=== PATIENT | female | born 1990 | race African-American/Black ===

== ENCOUNTER 2018-04-25 10:28 | Emergency (ER) | payer MEDICAID ==
[2018-04-25 11:03] LABS: WHITE BLOOD COUNT 8.2 10^3/ul (4.8-10.8)
[2018-04-25 11:03] LABS: ADD MAN DIFF? NO; BASOPHILS % 0.5 % (0.0-2.0); EOSINOPHILS # 0.2 10^3/ul (0.0-0.5); EOSINOPHILS % 1.8 % (0.0-7.0); HEMATOCRIT 42.7 % (37.0-47.0); HEMOGLOBIN 13.4 g/dl (12.0-16.0); LYMPHOCYTES % 24.9 % (15.0-51.0); MEAN CORPUSCULAR HEMOGLOBIN 23.3 pg (29.0-33.0); MEAN CORPUSCULAR HGB CONC 31.4 g/dl (32.0-37.0); MEAN CORPUSCULAR VOLUME 74.3 fl (82.0-101.0); MEAN PLATELET VOLUME 12.2 fl (7.4-10.4); MONOCYTE # 0.9 10^3/ul (0.3-0.9); MONOCYTES % 10.5 % (0.0-11.0); NEUTROPHIL # 5.1 10^3/ul (1.6-7.5); NEUTROPHILS % 62.2 % (39.0-77.0); PLATELET COUNT 307 10^3/UL (140-415); RED BLOOD COUNT 5.75 10^6/ul (4.20-5.40); RED CELL DISTRIBUTION WIDTH 14.5 % (11.5-14.5)
[2018-04-25] MEDS: CEFAZOLIN 1 GM/50 ML (PMX) 50 ML IVPB (11:09)
[2018-04-25] MEDS: morphine 4 MG/ML VIAL IV (11:09)
[2018-04-25] MEDS: ONDANSETRON 4 MG INJ IV (11:09)
[2018-04-25] MEDS: SOD CHLORIDE 0.9% 1,000 ML IV (11:10)
[2018-04-25] MEDS: DIPHTH/TET/ACEL PERTUSS (ADULT) 0.5 ML VIAL IM* (11:11)
[2018-04-25 11:25] LABS: ANION GAP 6 (5-13); BLOOD UREA NITROGEN 19 mg/dl (7-20); CARBON DIOXIDE 24 mmol/L (21-31); CHLORIDE 111 mmol/L (97-110); CREATININE 0.86 mg/dl (0.44-1.00); Estimated GFR > 60 mL/min (>60); GLUCOSE 117 mg/dl (70-220); SODIUM 141 mmol/L (135-144)
[2018-04-25] MEDS: LIDOCAINE 1% (MPF) 30 ML INJ INJ (12:45)
[2018-04-25] MEDS: LIDOCAINE 1% (MDV) 20 ML INJ SC (12:45)
== END 2018-04-25 14:55 | disposition home or self-care (01) ==
LOC: E/R 10:28
DX: S71.111A Laceration without foreign body, right thigh, initial encounter (principal); S63.502A Unspecified sprain of left wrist, initial encounter; R07.9 Chest pain, unspecified; Y09 Assault by unspecified means; Z23 Encounter for immunization
CPT/HCPCS: 12032; 36415; 70450; 71045; 73110-LT; 73501; 73510; 80048; 84703; 85025; 90471; 90715; 96374; 96375; 99285-25

== ENCOUNTER 2018-05-06 22:59 | Emergency (ER) | payer SELFPAY, MEDICAID | END 2018-05-07 00:09 | disposition left against medical advice (07) | LOC: FTE 22:59 | DX: Z53.21 Procedure and treatment not carried out due to patient leaving prior to being seen by health care provider (principal) ==

== ENCOUNTER 2018-05-07 15:03 | Emergency (ER) | payer SELFPAY | END 2018-05-07 16:36 | disposition left against medical advice (07) | LOC: E/R 15:03 | DX: Z53.21 Procedure and treatment not carried out due to patient leaving prior to being seen by health care provider (principal) ==

== ENCOUNTER 2018-05-07 16:46 | Emergency (ER) | payer SELFPAY | END 2018-05-07 19:05 | disposition left against medical advice (07) | LOC: FTE 16:46 | DX: Z53.21 Procedure and treatment not carried out due to patient leaving prior to being seen by health care provider (principal) ==